=== PATIENT | male | born 2000 | race Caucasian/White ===

== ENCOUNTER 2020-04-05 21:26 | Emergency (ER) | payer SELFPAY ==
[2020-04-05 21:34] VITALS: BP 136/86; PULSE 115; RESP 19; TEMP 37.1; O2SAT 92; BMI 35.3
--- NOTE | 2020-04-05 21:41 | ECG_ITS ---
[facility] Test Date: 2020-04-05 Pat Name: Emmanuel Granados Department: Room: Gender: Male Health Education Teacher: : 2000 Requested By: Monique Butterfield Order Number: [id number] Burgos MD: Moo Gautam M.D. Measurements Intervals [place] Rate: 106 P: 59 [place]: 162 QRS: 52 QRSD: 97 T: 32 QT: 335 QTc: 446 Interpretive Statements SINUS TACHYCARDIA NONSPECIFIC ST & T-WAVE ABNORMALITY ABNORMAL RHYTHM ECG No previous ECG available for comparison Electronically Signed On 04-06-2020 14:35:34 CDT by Moo Gautam M.D. [email or web address] ([email or web address] va [id number] f
--- NOTE | 2020-04-05 21:42 | ED_ITS ---
HPI - Allergic Reaction General: Chief complaint: Allergic Reaction Stated complaint: allergic reaction Time Seen by Provider: 04/05/20 21:27 Source: patient and EMS Mode of arrival: EMS Limitations: no limitations History of Present Illness: HPI narrative: Patient is a 19-year-old male who presents to ED today with complaints of an allergic reaction. Patient tells me earlier today he was moving boxes when he began breaking out in a rash to his bilateral forearms. He states shortly after he noticed the rash spreading until it was generalized. He described the rash as extremely pruritic. He was also having some complaints of shortness of breath. Patient was given 50 mg IV Benadryl in route and upon arrival states the itchiness has subsided. He reports no other environmental, chemical, household exposures. He is not having any difficulty swallowing or controlling secretions. No previous allergic reactions. MD complaint: allergic reaction and hives Onset (ago): hour(s) Exposure: unknown Associated symptoms: Deny abdominal pain, nausea or vomiting Severity: moderate Treatment prior to arrival: benadryl Previous Allergic Reaction History: none Review of Systems Const: Denies: fever(s), chills, body aches, fatigue or malaise Eyes: Denies: change in vision, blurry vision, photophobia, floaters or seeing flashes ENMT: Denies: throat pain, uvular edema, enlarged tonsils, odynophagia or swelling of lips/tongue Card: Denies: chest pain, palpitations, irregular heart rhythm, edema, lightheadedness, syncope, pre-syncope, dyspnea on exertion or orthopnea Resp: Reports: dyspnea; Denies: productive cough, non-productive cough or chest congestion GI: Denies: abdominal pain, nausea, vomiting or diarrhea Musc: Denies: neck pain, back pain, extremity pain, extremity swelling, joint pain or joint swelling Skin/Breast: Reports: rash Neuro: Denies: headache(s), numbness in extremities, weakness in extremities or sensory changes PFS ED PFSH: Social History (Updated 09/23/19 @ 15:10 by Tuyet [place] LPN) Smoking and tobacco status: current some day smoker Physical Exam Const: COMMON NORMALS: no acute distress, average body habitus, patient oriented x3, no limitations, healthy appearing, alert and well nourished ORIENTATION/CONSCIOUSNESS: Yes oriented to person, Yes oriented to place and Yes oriented to time HENMT: COMMON NORMALS: normocephalic, atraumatic, hearing grossly normal bilaterally, external ears normal, EAC's normal, TM's normal bilaterally, Normal external nose present, Normal nasal mucous membranes and turbinates present, moist oral mucous membranes and oropharynx normal HEAD & SCALP: normal to inspection, normocephalic and atraumatic FACE & SINUS: normal facial exam and sinuses nontender NOSE: Normal external nose present and Normal nasal mucous membranes and turbinates present EXTERNAL EAR: Yes external ears normal EXTERNAL AUDITORY CANAL: EAC's normal TYMPANIC MEMBRANE: TM's normal bilaterally MOUTH: Normal oral and palatal mucosa present, lip normal and tongue normal THROAT: posterior oropharynx normal, tonsils normal and uvula midline; no uvular edema Eye: GENERAL EYE: appearance normal, both eyes and all related structures Neck/C-Spine: COMMON NORMALS: full ROM, no lymphadenopathy, supple and no meningeal signs GENERAL: Yes normal visual inspection Chest: COMMONS NORMALS: normal inspection of the chest Resp: COMMON NORMALS: normal respiratory effort and clear to auscultation bilaterally AUSCULTATION: clear to auscultation bilaterally Cardio: COMMON NORMALS: regular rhythm RATE: tachycardic RHYTHM: regular rhythm GI: COMMON NORMALS: Normal to inspection, nondistended, normoactive bowel sounds present, Soft to palpation, non-tender, No hepatosplenomegaly present and no masses PALPATION: Yes Soft to palpation and Yes No hepatosplenomegaly present : COMMON NORMALS: Yes no CVA tenderness BLADDER/KIDNEY EXAM: Yes no CVA tenderness Back/Pelvis: COMMON NORMALS: no CVA tenderness and thoracic and lumbar spine normal to inspection Extremity: COMMON NORMALS: normal to inspection Neuro: RICHARDSON COMA SCALE: document GCS findings Richardson coma scale eye opening: Spontaneous Brewster coma scale verbal response: Orientated Richardson coma scale motor response: Obey commands Brewster coma scale total score: 15 COMMON NORMALS: patient oriented x3, CN's II-XII intact bilaterally, moves all extremities, no focal motor deficits and no sensory deficits noted SENSORIUM/ORIENTATION: Yes alert, Yes oriented to person, Yes oriented to place and Yes oriented to time MENINGEAL SIGNS: Yes no meningeal signs Skin: RASHES: rashes noted (diffuse urticaria) Course Vital Signs: Vital signs: Vital Signs Temperature 98.7 F 04/05/20 21:34 Pulse Rate 115 H 04/05/20 21:34 Respiratory Rate 19 H 04/05/20 21:34 Blood Pressure 136/86 04/05/20 21:34 Pulse Oximetry 92 04/05/20 21:34 MDM - Allergic Reaction MDM Narrative: Medical decision making narrative: Patient reporting he feels much better. Urticaria is much faded however has not fully subsided. He no longer complains of shortness of breath/difficulty breathing. Patient states he feels comfortable going home at this time. Return to ED precautions given. Lab Data: Labs: Lab Results 04/05/20 04/05/20 Range/Units 21:55 21:55 WBC 14.2 H (4.0-10.0) 10^3/ uL RBC 6.12 H (4.1-5.3) 10^6/u L Hgb 17.7 H (11.7-16.6) g/dL Hct 52.0 (42.0-52.0) % MCV 85.0 (80-94) fL MCH 28.9 (28.0-34.0) pg MCHC 34.0 (30.0-36.0) g/dL RDW 11.9 L (12.1-15.1) % Plt Count 340 (130-400) 10^3/c mm MPV 9.5 (7.4-10.4) fL Neut % (Auto) 83.7 % Lymph % (Auto) 13.6 % Dickinson % (Auto) 2.1 % Eos % (Auto) 0.3 % Baso % (Auto) 0.1 % Neut # (Auto) 11.85 H (1.8-7.7) 10^3/u L Lymph # (Auto) 1.9 (0.8-4.8) 10^3/u L Dickinson # (Auto) 0.3 (0.2-0.9) 10^3/u L Eos # (Auto) 0.0 (0.0-0.8) 10^3/u L Baso # (Auto) 0.0 (0.0-0.1) 10^3/u L Nucleated RBC % (a uto) 0 % Nucleated RBCs # 0.0 /100WBC Sodium 140 (136-145) mmol/L Potassium 3.5 (3.5-5.1) mmol/L Chloride 103 (98-107) mmol/L Carbon Dioxide 24 (22-29) mmol/L Anion Gap 16.5 (5-19) BUN 18 (6-20) mg/dL Creatinine 1.2 (0.7-1.2) mg/dL GFR Calculation 76.4 L (90-130) mL/min Glucose 126 H (65-115) mg/dL Calculated Osmolal ity 288 (285-295) mOsm/k g Calcium 10.1 (8.5-10.5) mg/dL Total Bilirubin 0.4 (0.15-1.2) mg/dL AST 29 (0-40) U/L ALT 34 (0-41) U/L Alkaline Phosphata se 72 (40-130) IU/L Total Protein 7.8 (6.6-8.7) g/dL Albumin 4.6 (3.5-5.2) g/dL Globulin 3.2 (1.3-4.6) g/dL EKG Data^: EKG 1: EKG interpretation date: 04/05/20 EKG interpretation time: 22:37 Interpretation: Sinus tachycardia Rate [address] elevation or depression changes noted Discharge Plan Discharge Patient Disposition: Home Clinical Impression: Urticaria Allergic reaction Qualifiers: Encounter type: initial encounter Qualified Code(s): T78.40XA - Allergy, unspecified, initial encounter Condition: Stable Prescriptions: No Action Benadryl 25 mg Capsule 25 - 50 mg PO PRN RF: 0 Aleve 220 mg Tablet 440 mg PO PRN RF: 0 Tums See Rx Instructions .ROUTE .COMPLEX RF: 0 Discharge Orders: Discharge Order (Routine); Ordered 04/06/20 Ordered By: Monique Butterfield Patient Instructions: Allergic Reaction, Urticaria (ED) Activity Restrictions/Additional Instructions: Patient may return to the emergency department for shortness of breath, difficulty breathing, lip/tongue swelling, difficulty swallowing, any other concerns you may have. Beginning tomorrow you may continue to dose patient with 50 mg Benadryl every 4-6 hours as needed. Please follow-up with his primary care provider if rash persists over the weekend. Discharge Date/Time: 04/06/20 00:27 Coding Level of Care Code ED Machine Printer for Chg Fwd Exam Comprehensive
[2020-04-05] MEDS: diphenhydrAMINE 50 mg/mL SDV 1mL IVP (21:45)
[2020-04-05] MEDS: famotidine 20 mg/2 mL INJ 40 MG IVP (21:45)
[2020-04-05] MEDS: sodium chloride 0.9% 1,000 ML 999 ML IV (21:45)
[2020-04-05 22:03] LABS: Basophils % 0.1 %; Eosinophils % 0.3 %; Hemoglobin 17.7 g/dL (11.7-16.6); Lymphocytes # 1.9 10^3/uL (0.8-4.8); Lymphocytes % 13.6 %; Mean Corpuscular Hemoglobin 28.9 pg (28.0-34.0); Mean Platelet Volume 9.5 fL (7.4-10.4); Monocytes # 0.3 10^3/uL (0.2-0.9); Monocytes % 2.1 %; Neutrophils # 11.85 10^3/uL (1.8-7.7); Neutrophils % 83.7 %; Nucleated Red Blood Cells % 0 %; Platelet Count 340 10^3/cmm (130-400); Red Blood Count 6.12 10^6/uL (4.1-5.3); Red Cell Distribution Width 11.9 % (12.1-15.1); White Blood Count 14.2 10^3/uL (4.0-10.0)
[2020-04-05 23:09] LABS: Alanine Aminotransferase 34 U/L (0-41); Albumin Level 4.6 g/dL (3.5-5.2); Alkaline Phosphatase 72 IU/L (40-130); Anion Gap 16.5 (5-19); Aspartate Amino Transferase 29 U/L (0-40); Blood Urea Nitrogen 18 mg/dL (6-20); Calcium 10.1 mg/dL (8.5-10.5); Carbon Dioxide 24 mmol/L (22-29); Chloride 103 mmol/L (98-107); Globulin 3.2 g/dL (1.3-4.6); Glomerular Filtration Rate 76.4 mL/min (90-130); Glucose 126 mg/dL (65-115); Osmolality Calculated 288 mOsm/kg (285-295); Potassium 3.5 mmol/L (3.5-5.1); Sodium 140 mmol/L (136-145); Total Bilirubin 0.4 mg/dL (0.15-1.2); Total Protein 7.8 g/dL (6.6-8.7)
== END 2020-04-06 00:27 | disposition home or self-care (01) ==
PROVIDERS: Emergency Provider Physician Assistant
DX: L50.9 Urticaria, unspecified (principal); T78.40XA Allergy, unspecified, initial encounter; F17.210 Nicotine dependence, cigarettes, uncomplicated
CPT/HCPCS: 12345; 80053; 85025; 93005; 93010; 96361; 96374; 96375; 99281; 99283; J1200; J2930; J3490; J7030

== ENCOUNTER → 2023-09-01 13:18 | Outpatient (BNVA) | payer BC, SELFPAY | PROVIDERS: Visit Provider Registered Nurse Neonatal Intensive Care | DX: R05.9 Cough, unspecified (principal) | CPT/HCPCS: 87400 ==